=== PATIENT | male | born 1975 ===

== ENCOUNTER 2018-07-01 00:46 | Emergency (ER) | payer SELFPAY ==
[2018-07-01 00:56] VITALS: TEMP 96.6
[2018-07-01 01:05] VITALS: O2SAT 92
[2018-07-01 01:17] LABS: BASOPHILS % (AUTO) 1 % (0-3); EOSINOPHILS % (AUTO) 1 % (0-9); HEMATOCRIT 44 % (39-53); HEMOGLOBIN 14.9 gm/dl (13.5-17.7); LYMPHOCYTES % (AUTO) 41.8 % (10-50); MEAN CORPUSCULAR HEMOGLOBIN 32.4 pg (27.0-32.0); MEAN CORPUSCULAR HGB CONC 33.8 gm/dl (32.0-36.0); MEAN CORPUSCULAR VOLUME 96 fL (80-100); MONOCYTES % (AUTO) 7.9 % (0-12); NEUTROPHILS % (AUTO) 48.1 % (37-80)
[2018-07-01 01:39] LABS: CARBON DIOXIDE 24.5 mEq/L (21-32); CREATININE 0.95 mg/dl (0.80-1.30); POTASSIUM 4.1 mMol/L (3.5-5.1)
[2018-07-01 01:40] LABS: ALBUMIN 3.7 gm/dl (3.4-5.0); BILIRUBIN,TOTAL 0.2 mg/dl (0.2-1.0); CALCIUM 8.4 mg/dl (8.5-10.1); TOTAL PROTEIN 7.9 gm/dl (6.4-8.2)
[2018-07-01 01:41] LABS: ALCOHOL 0.279 gm/dl (0.000-0.08)
[2018-07-01 02:42] VITALS: BP 121/76; PULSE 83; RESP 20
== END 2018-07-01 03:15 | disposition other institution (70) | DRG 897 ==
LOC: ED 00:46
DX: F10.929 Alcohol use, unspecified with intoxication, unspecified (principal)
CPT/HCPCS: 36415; 80053; 80307; 82150; 85025; 99283